=== PATIENT | female | born 1945 | race African-American/Black ===

== ENCOUNTER 2016-08-09 21:31 | Emergency (ER) | payer MEDICARE, MEDICAID ==
--- NOTE | 2016-08-10 02:40 | RADIOLOGY REPORT (SQ) ---
EXAM DESCRIPTION: CT FACIAL AREA WITHOUT COMPLETED DATE/TIME: 08/10/2016 2:00 am REASON FOR STUDY: right facial swelling COMPARISON: None. TECHNIQUE: Noncontrasted images through the facial bones and orbits windowed for bone and soft tissu e. Additional coronal and sagittal reconstructed images reviewed. All images stored on PACS. All CT scanners at this facility use dose modulation, iterative reconstruction, and/or weight based d osing when appropriate to reduce radiation dose to as low as reasonably achievable (ALARA). [facility]: Dose Right [facility]: CareDose [facility]: Dose Right [facility]: Teradose 4D [facility]: [employer] RADIATION DOSE: Up-to-date CT equipment and radiation dose reduction techniques were employed. CTDIv ol: 30.4 mGy. DLP: 562 mGy-cm. mGy. LIMITATIONS: None. FINDINGS: FACIAL BONES: 5.4 x 4.1 x 2.7 cm complex cystic mass of the right infratemporal fossa/mast icator space predominantly between the zygomatic arch and right maxilla. There is central diminished attenuation with possible surrounding rind as can be seen with an abscess or necrotic mass. There i s associated chronic appearing erosion measuring 1.9 cm of the right mandible in an area of expected right mandibular molars. Soft tissue density occlusion of the right maxillary and right ethmoid air cells. ORBITS: Intact. No fracture. Symmetric intact globes and retroorbital soft tissues. PARANASAL SINUSES: As above. SOFT TISSUES: As above. INFERIOR BRAIN: Limited view. No acute findings. OTHER: Moderate disc desiccation and spondylosis of the cervical spine. [id number] cervical ly mphadenopathy, right more than left includes a 2.1 cm right cervical, suprahyoid lymph node, image 23 of series 200. Complex masslike enlargement of the left thyroid gland with punctate calcification m easures 3.1 cm is partially imaged. IMPRESSION: 1. A 5.4 cm complex right facial mass with associated erosion of the right mandible. D ifferential diagnosis includes chronic abscess and malignancy. 2. Indeterminate left thyroid mass measures at least 3.1 cm; thyroid ultrasound recommended. TECHNICAL DOCUMENTATION: JOB ID: [id number] Quality ID # [id number]: Final reports with documentation of one or more dose reduction techniques (e.g., Au tomated exposure control, adjustment of the mA and/or kV according to patient size, use of iterative reconstruction technique) 2010 [employer]- All Rights Reserved
[2016-08-10] MEDS ORDERED: CLINDAMYCIN 600 MG/D5W RTU 50 ML IV ONE (03:04)
[2016-08-10] MEDS ORDERED: ONDANSETRON HCL INJ/PF 4 MG/2 ML SDV IV ONE (03:11)
[2016-08-10] MEDS ORDERED: MORPHINE SULFATE 10 MG/ML INJ IV ONE (03:11)
[2016-08-10] MEDS ORDERED: DEXTROSE 5%-1/2 NORMAL SALINE 1,000 ML IV ONE (03:40)
[2016-08-10 03:47] LABS: ABSOLUTE LYMPHOCYTES (AUTO) 1.3 10^3/uL (0.5-4.7); ABSOLUTE MONOCYTES (AUTO) 2.1 10^3/uL (0.1-1.4); ABSOLUTE NEUT (AUTO) 12.7 10^3/uL (1.7-8.2); BASOPHILS % (AUTO) 0.3 % (0-2); EOSINOPHILS % (AUTO) 0.3 % (0-6); HEMATOCRIT 33.5 % (36.0-47.0); HEMOGLOBIN 10.6 g/dL (12.0-15.5); HGB HCT DIFFERENCE -1.7; LYMPHOCYTES % (AUTO) 8.2 % (13-45); MEAN CORPUSCULAR HEMOGLOBIN 26.2 pg (27.0-33.4); MEAN CORPUSCULAR HGB CONC 31.7 g/dL (32.0-36.0); MEAN CORPUSCULAR VOLUME 83 fl (80-97); MONOCYTES % (AUTO) 12.9 % (3-13); RED BLOOD COUNT 4.05 10^6/uL (3.72-5.28); RED CELL DISTRIBUTION WIDTH 12.6 % (11.5-14.0); SEGMENTED NEUTROPHILS % (AUTO) 78.3 % (42-78); WHITE BLOOD COUNT 16.3 10^3/uL (4.0-10.5)
[2016-08-10 03:53] LABS: PROTHROMBIN TIME 16.4 SEC (11.4-15.4)
[2016-08-10 03:54] LABS: PARTIAL THROMBOPLASTIN TIME 48.2 SEC (23.5-35.8)
[2016-08-10 03:55] LABS: ANION GAP 19 (5-19); BLOOD UREA NITROGEN 13 mg/dL (7-20); CALCIUM 9.9 mg/dL (8.4-10.2); CARBON DIOXIDE 22 mmol/L (22-30); CHLORIDE 103 mmol/L (98-107); CREATININE RESULT 1.14 mg/dL (0.52-1.25); GLUCOSE 114 mg/dL (75-110); POTASSIUM 4.1 mmol/L (3.6-5.0); SODIUM 143.8 mmol/L (137-145)
--- NOTE | 2016-08-10 05:25 | ER Document Report ---
ED General - General Chief Complaint: Facial Swelling Stated Complaint: FACIAL SWELLING Time Seen by Provider: 08/10/16 00:47 TRAVEL OUTSIDE OF THE [place] IN LAST 30 DAYS: No - HPI Patient complains to provider of: Facial swelling Notes: Right facial swelling ongoing for approximately 1 week. Patient is approximately 3-4 weeks post having upper and lower right abdomen was removed. Denies fevers patient states she has been having difficulty eating increased pain therefore came to the ER tonight for further evaluation. Patient is controlling her secretions no signs of any obvious airway compromise - Related Data Allergies/Adverse Reactions: No Known Allergies Allergy (Unverified 08/10/16 04:47) Past Medical History - Social History Smoking Status: Unknown if Ever Smoked Family History: Reviewed & Not Pertinent Patient has suicidal ideation: No Patient has homicidal ideation: No Renal/ Medical History: Denies: Hx Peritoneal Dialysis Review of Systems - Review of Systems Constitutional: Other - Swelling EENT: No symptoms reported Cardiovascular: No symptoms reported Respiratory: No symptoms reported Gastrointestinal: No symptoms reported Genitourinary: No symptoms reported Female Genitourinary: No symptoms reported Musculoskeletal: No symptoms reported Skin: No symptoms reported Hematologic/Lymphatic: No symptoms reported Neurological/Psychological: No symptoms reported Physical Exam - Vital signs Vitals: Temp Pulse BP Pulse Ox 98.7 F 99 143/73 H 97 08/09/16 22:13 08/09/16 22:13 08/09/16 22:13 08/09/16 22:13 Interpretation: Normal - General General appearance: Appears well, Alert - HEENT Head: Normocephalic, Atraumatic Eyes: Normal Pupils: PERRL Notes: Patient obvious swelling to the right side of face. Swelling started at the mid masseter region goes up to the temporal region tenderness to palpation no obvious fluctuance. No outward skin changes - Respiratory Respiratory status: No respiratory distress Chest status: Nontender Breath sounds: Normal Chest palpation: Normal - Cardiovascular Rhythm: Regular Heart sounds: Normal auscultation Murmur: No - Abdominal Inspection: Normal Distension: No distension Bowel sounds: Normal Tenderness: Nontender Organomegaly: No organomegaly - Back Back: Normal, Nontender - Extremities General upper extremity: Normal inspection, Nontender, Normal color, Normal ROM , Normal temperature General lower extremity: Normal inspection, Nontender, Normal color, Normal ROM , Normal temperature, Normal weight bearing. No: Barrera's sign - Neurological Neuro grossly intact: Yes Cognition: Normal Orientation: AAOx4 [place] Coma Scale Eye Opening: Spontaneous [place] Coma Scale Verbal: Oriented Toni Coma Scale Motor: Obeys Commands Toni Coma Scale Total: 15 Speech: Normal Motor strength normal: LUE, RUE, LLE, RLE Sensory: Normal - Psychological Associated symptoms: Normal affect, Normal mood - Skin Skin Temperature: Warm Skin Moisture: Dry Skin Color: Normal Course - Re-evaluation Re-evalutation: 08/10/16 05:24 I did discuss patient's case with multiple facilities however local facilities do not have oral maxillofacial or ENT that would take the patient. Discussed with oral maxilla facial surgery initially resident then attending at [facility] initial resident requested sed rate and CRP. Discussed with oral maxilla facial attending states that due to the fact radiology states possible involvement of the mandible molars and also maxillary sinus he is concerned about possible need for ENT therefore patient will be transferred to the ER. Discussed with the ER attending Dr. Alvarado Yadav who accepted the patient in transfer. Patient for her visit here in the ER has been maintaining her airway no signs of impending airway compromise was given IV clindamycin. Repeat doses of clindamycin will be ordered for the patient. Currently pending transport to tertiary care facility. 08/10/16 05:25 CT scan does show thyroid nodules at this time not contributing to the patient' s acute disease I did discuss this with the patient and the need for follow-up - Vital Signs Vital signs: Temp Pulse Resp BP Pulse Ox 98.7 F 99 20 143/73 H 97 08/09/16 22:22 08/09/16 22:22 08/09/16 22:22 08/09/16 22:22 08/09/16 22:22 - Laboratory Result Diagrams: 08/10/16 03:31 08/10/16 03:31 Laboratory results interpreted by me: 08/10/16 08/10/16 08/10/16 03:31 03:31 03:31 WBC 16.3 H Hgb 10.6 L Hct 33.5 L MCH 26.2 L MCHC 31.7 L Plt Count 587 H Seg Neutrophils % 78.3 H Lymphocytes % 8.2 L Absolute Neutrophils 12.7 H Absolute Monocytes 2.1 H ESR PT 16.4 H APTT 48.2 H Est GFR ( Amer) 57 L Est GFR (Non-Af Amer) 47 L Glucose 114 H C-Reactive Protein 08/10/16 08/10/16 03:31 03:37 WBC Hgb Hct MCH MCHC Plt Count Seg Neutrophils % Lymphocytes % Absolute Neutrophils Absolute Monocytes ESR 109 H PT APTT Est GFR ( Amer) Est GFR (Non-Af Amer) Glucose C-Reactive Protein 277.9 H Critical Care Note - Critical Care Note Total time excluding time spent on procedures (mins): 35 Comments: Multiple evaluations for significant facial swelling monitoring airway Discharge - Discharge Clinical Impression: Right facial abscess, Thyroid nodule, History of diabetes Condition: Good Disposition: [facility]
[2016-08-10] MEDS: MORPHINE SULFATE 10 MG/ML INJ IV PRN ×3 (06:45→11:11)
[2016-08-10 11:15] VITALS: BP 132/59
[2016-08-10] MEDS ORDERED: CLINDAMYCIN 300 MG/D5W RTU 50 ML IV SCH (12:00)
== END 2016-08-10 11:30 | disposition short-term general hospital (02) ==
LOC: ER 21:31
DX: L02.01 Cutaneous abscess of face (principal); E04.1 Nontoxic single thyroid nodule; E11.9 Type 2 diabetes mellitus without complications; Z98.890 Other specified postprocedural states
CPT/HCPCS: 99291; 96375; 96365; 36415; 87040; 85025; 85652; 85610; 85730; 86140; 80048; 70486; J3490; J2270; J2405

== ENCOUNTER → 2017-05-17 | Outpatient (CLI) | payer MEDICARE, MEDICAID ==
--- NOTE | 2017-05-18 13:09 | WOMENS IMAGING REPORT ---
EXAM DESCRIPTION: 3D SCREENING MAMMO BILAT COMPLETED DATE/TIME: 05/17/2017 8:51 am REASON FOR STUDY: SCREENING MAMMO Z12.31 ENCNTR SCREEN MAMMOGRAM FOR MALIGNANT NEOPLASM OF ANGE COMPARISON: None. TECHNIQUE: Standard craniocaudal and mediolateral oblique views of each breast recorded using digita l acquisition and breast tomosynthesis. LIMITATIONS: None. FINDINGS: No masses, calcifications or architectural distortion. No areas of suspicion. Read with the assistance of CAD. .[facility] - R2 Cenova Version 1.3 .[facility] - R2 Cenova Version 1.3 .[facility] - R2 Cenova Version 2.4 .[facility] [place] Cenova [place] 2.4 .[facility] - R2 Lung Gun Operator Version 9.2 IMPRESSION: NORMAL MAMMOGRAM. BIRADS 1. BREAST DENSITY: b. There are scattered areas of fibroglandular density. BIRAD: 1 NEGATIVE RECOMMENDATION: ROUTINE SCREENING COMMENT: The patient has been notified of the results by letter per [place] requirements. Additional no tification policies are in place for contacting patient with suspicious or incomplete findings. Quality ID #[id number]: The [employer] recommends an annual screening mammogram for women aged 40 years or over. This facility utilizes a reminder system to ensure that all patients receive reminder letters, and/or direct phone calls for appointments. This includes reminders for routine scr eening mammograms, diagnostic mammograms, or other Breast Imaging Interventions when appropriate. Th is patient will be placed in the appropriate reminder system. The [employer] (ACR) has developed recommendations for screening MRI of the breast s in certain patient populations, to be used in conjunction with mammography. Breast MRI surveillanc e may be appropriate for women with more than 20% lifetime risk of developing breast cancer as deter mined by genetic testing, significant family history of the disease, or history of mantle radiation f or Hodgkins Disease. ACR Practice Guidelines 2008. DBT Technology DBT is a type of tomographic mammography. With conventional mammography, overlapping breast tissue ma y make lesions difficult to detect, even with good compression. DBT uses an x-ray tube that rotates a round the breast, taking images at different angles. These images are then combined to create thin sl ices of the breast that the radiologist can view as a 3D reconstruction. The [employer] unit can perform full-field digital mammograms (2D imaging); or DBT (3D imaging); or both, in a combination mode that quickly performs both the mammogram and the tomosynthesis scan while the breast is still compressed. PQRS 6045F: Fluoroscopic imaging is not utilized for breast tomosynthesis. TECHNICAL DOCUMENTATION: FINDING NUMBER: (1) ASSESSMENT: (1) JOB ID: [id number] [employer]- All Rights Reserved Reading location - IP/workstation name: [email or web address]
== END ==
LOC: WI 08:07
PROVIDERS: ATTEND Physician Assistant
DX: Z12.31 Encounter for screening mammogram for malignant neoplasm of breast (principal)
CPT/HCPCS: 77063; 77067

== ENCOUNTER 2018-04-20 08:12 | Day surgery (SDC) | payer MEDICARE, MEDICAID ==
[~2018-04-20 08:12] MED LIST: CHONDR SU A NA/HYALUR INTRAOC KIT (SURGICARE) ONE; EPINEPHRINE INJ/PF 1 MG/1 ML AMPULE ONE; KETOROLAC TROMETHAMINE 0.45% 4 DROP/0.4 ML DROPERETTE OS PRN; LIDOCAINE 1% INJ-PF (10 MG/ML) 30 ML SDV ONE
[2018-04-20] MEDS: CYCLOPENTOLATE 0.2%/PHENYLEPHRINE 1% OPH SOLN 2 ML OS PRN ×3 (08:32→08:51)
[2018-04-20] MEDS: TROPICAMIDE 1% OPH SOLN 3 ML OS PRN ×3 (08:32→08:51)
[2018-04-20] MEDS: BESIFLOXACIN HCL 0.6% OPH SUSP 5 ML BOTTLE OS PRN ×4 (08:33→09:23)
[2018-04-20] MEDS: TETRACAINE HCL 0.5% OPH SOLN 0.6 ML DROPERETTE OS PRN ×3 (08:34→08:59)
[2018-04-20] MEDS ORDERED: MIDAZOLAM 2 MG/2 ML INJ ONE (08:51)
[2018-04-20] MEDS ORDERED: FENTANYL CITRATE INJ/PF 100 MCG/2 ML AMPUL ONE (08:51)
[2018-04-20] MEDS: TOBRAMYCIN SULFATE/DEXAMETH OPH OINTMENT 3.5 GM ONE ×2 (09:23)
[2018-04-20] MEDS: DORZOLAMIDE HCL 2%/TIMOLOL MALEAT 0.5% OPH SOLN 10 ML OS PRN ×2 (09:23)
== END 2018-04-20 10:10 | disposition home or self-care (01) ==
LOC: SC 08:12
PROVIDERS: ATTEND Ophthalmology
DX: H25.12 Age-related nuclear cataract, left eye (principal); Z98.41 Cataract extraction status, right eye; E11.9 Type 2 diabetes mellitus without complications; E78.00 Pure hypercholesterolemia, unspecified; I10 Essential (primary) hypertension; Z79.82 Long term (current) use of aspirin; Z79.84 Long term (current) use of oral hypoglycemic drugs; Z79.899 Other long term (current) drug therapy; M10.9 Gout, unspecified
CPT/HCPCS: 66984; 82962; V2632; J2250; J3490 ×3; A9270; J0171; J3010; 142

== ENCOUNTER 2018-05-04 07:02 | Day surgery (SDC) | payer MEDICARE, MEDICAID ==
[~2018-05-04 07:02] MED LIST changes: -CHONDR SU A NA/HYALUR INTRAOC KIT (SURGICARE) ONE; -EPINEPHRINE INJ/PF 1 MG/1 ML AMPULE ONE; +KETOROLAC TROMETHAMINE 0.45% 4 DROP/0.4 ML DROPERETTE OD PRN; -KETOROLAC TROMETHAMINE 0.45% 4 DROP/0.4 ML DROPERETTE OS PRN; -LIDOCAINE 1% INJ-PF (10 MG/ML) 30 ML SDV ONE
[2018-05-04] MEDS ORDERED: CHONDR SU A NA/HYALUR INTRAOC KIT (SURGICARE) ONE (07:47)
[2018-05-04] MEDS ORDERED: LIDOCAINE 1%/PHENYLEPHRINE 1.5% 1 ML VIAL ONE (07:47)
[2018-05-04] MEDS ORDERED: EPINEPHRINE INJ/PF 1 MG/1 ML AMPULE ONE (07:47)
[2018-05-04] MEDS: TETRACAINE HCL 0.5% OPH SOLN 0.6 ML DROPERETTE OD PRN ×3 (07:50→08:14)
[2018-05-04] MEDS: TROPICAMIDE 1% OPH SOLN 3 ML OD PRN ×3 (07:50→08:10)
[2018-05-04] MEDS: BESIFLOXACIN HCL 0.6% OPH SUSP 5 ML BOTTLE OD PRN ×4 (07:50→08:38)
[2018-05-04] MEDS: CYCLOPENTOLATE 0.2%/PHENYLEPHRINE 1% OPH SOLN 2 ML OD PRN ×3 (07:50→08:10)
[2018-05-04] MEDS ORDERED: ONDANSETRON HCL INJ/PF 4 MG/2 ML SDV ONE (08:05)
[2018-05-04] MEDS ORDERED: MIDAZOLAM 2 MG/2 ML INJ ONE (08:05)
[2018-05-04] MEDS ORDERED: FENTANYL CITRATE INJ/PF 100 MCG/2 ML AMPUL ONE (08:05)
[2018-05-04] MEDS: TOBRAMYCIN SULFATE/DEXAMETH OPH OINTMENT 3.5 GM ONE ×2 (08:38)
== END 2018-05-04 09:11 | disposition home or self-care (01) ==
LOC: SC 07:02
PROVIDERS: ATTEND Ophthalmology
DX: H25.11 Age-related nuclear cataract, right eye (principal); E11.9 Type 2 diabetes mellitus without complications; I10 Essential (primary) hypertension; E78.00 Pure hypercholesterolemia, unspecified; Z98.42 Cataract extraction status, left eye; Z79.84 Long term (current) use of oral hypoglycemic drugs; Z79.899 Other long term (current) drug therapy; M10.9 Gout, unspecified
CPT/HCPCS: 82962; 66982; V2632; J2250; J3490 ×2; A9270; J0171; J3010; J2405; J2370; 142